=== PATIENT | male | born 1980 | race Two or more races ===

== ENCOUNTER 2017-06-05 11:58 | Emergency (ER) | payer MEDICAID, OTHER, SELFPAY ==
[~2017-06-05] VITALS: Ht 180.3 cm; Wt 139.2 kg
[2017-06-05 12:00] VITALS: BP 147/90
[2017-06-05] MEDS ORDERED: HYDROcodone/APAP 5/325 TABLET ONE (12:29)
[2017-06-05] MEDS ORDERED: HYDROcodone/APAP 5/325 TABLET PO ONE (12:30)
== END 2017-06-05 14:14 | disposition home or self-care (01) ==
LOC: ED 12:30
DX: S62.314A Displaced fracture of base of fourth metacarpal bone, right hand, initial encounter for closed fracture (principal); G89.11 Acute pain due to trauma; W01.0XXA Fall on same level from slipping, tripping and stumbling without subsequent striking against object, initial encounter; Y93.89 Activity, other specified; Y92.410 Unspecified street and highway as the place of occurrence of the external cause; Y99.8 Other external cause status
CPT/HCPCS: 29125; 99284

== ENCOUNTER 2017-12-16 01:50 | Emergency (ER) | payer MEDICAID ==
[~2017-12-16] VITALS: Ht 177.8 cm; Wt 145.0 kg
[2017-12-16] MEDS ORDERED: LISI-170 PO (01:54)
[2017-12-16] MEDS ORDERED: DIPHENHYDRAMINE 50 MG/ML, 1ML IVPush ONE (02:30)
[2017-12-16] MEDS ORDERED: PROCHLORPERAZINE 5 MG/ML, 2ML IVPush ONE (02:30)
[2017-12-16] MEDS ORDERED: DIPHENHYDRAMINE 50 MG/ML, 1ML ONE (02:31)
[2017-12-16] MEDS ORDERED: PROCHLORPERAZINE 5 MG/ML, 2ML ONE (02:31)
[2017-12-16 03:37] VITALS: BP 169/90
== END 2017-12-16 03:45 | disposition home or self-care (01) ==
LOC: ED 03:39
DX: G44.219 Episodic tension-type headache, not intractable (principal); I10 Essential (primary) hypertension
CPT/HCPCS: 70450; 96374; 96375; 99284; J0780; J1200

== ENCOUNTER 2018-09-26 12:38 | Day surgery (SDC) | payer OTHER ==
[~2018-09-26] VITALS: Ht 177.8 cm; Wt 141.2 kg
[~2018-09-26 12:38] MED LIST: LISI-170 PO
[2018-09-26] MEDS ORDERED: LACTATED RINGERS 1,000 ML IV SCH (12:54)
[2018-09-26] MEDS ORDERED: CYCL5TAB PO (13:16)
[2018-09-26 13:25] VITALS: BP 118/81
[2018-09-26] MEDS ORDERED: FENTANYL PF 100 MCG/2ML ONE (13:56)
[2018-09-26] MEDS ORDERED: MIDAZOLAM 1 MG/ML, 2ML ONE (13:56)
[2018-09-26] MEDS ORDERED: LIDOCAINE 1%-EPI 1:100K, 20ML ONE (14:18)
[2018-09-26] MEDS ORDERED: ROPIvacaine/PF 0.5%, 30 ML ONE (14:18)
[2018-09-26] MEDS ORDERED: FENTANYL PF 250 MCG/5ML ONE (14:42)
[2018-09-26] MEDS ORDERED: DIAZEPAM 5 MG/ML, 2ML IVPush PRN (15:00)
[2018-09-26] MEDS ORDERED: PROMETHAZINE 25 MG/ML, 1ML IV PRN (15:00)
[2018-09-26] MEDS ORDERED: LABETALOL 5MG/ML, 20ML IV PRN (15:00)
[2018-09-26] MEDS ORDERED: hydrALAzine 20 MG/ML, 1ML IV PRN (15:00)
[2018-09-26] MEDS ORDERED: ACETAMINOPHEN 325 MG TABLET PO PRN (15:00)
[2018-09-26] MEDS ORDERED: HYDROmorphone 2 MG/ML, 1ML IVPush PRN (15:00)
[2018-09-26] MEDS ORDERED: FENTANYL PF 100 MCG/2ML IV PRN (15:00)
[2018-09-26] MEDS ORDERED: MEPERIDINE/PF 25MG/0.5ML IVPush PRN (15:00)
[2018-09-26] MEDS ORDERED: ALBUTEROL SULFATE 2.5 MG/3 ML NPPB PRN (15:00)
[2018-09-26] MEDS ORDERED: MEPERIDINE/PF 100 MG/ML ONE (15:57)
[2018-09-26] MEDS ORDERED: NEOSTIGMINE 1 MG/ML, 10ML ONE (15:58)
[2018-09-26] MEDS ORDERED: PROPOFOL 10 MG/ML, 20ML ONE (15:58)
[2018-09-26] MEDS ORDERED: ONDANSETRON 2MG/ML, 2ML ONE (15:58)
[2018-09-26] MEDS ORDERED: CEFAZOLIN 1,000 MG ONE (15:58)
[2018-09-26] MEDS ORDERED: ROCURONIUM 10MG/ML,5ML ONE (15:58)
[2018-09-26] MEDS ORDERED: GLYCOPYRROLATE 0.2MG/1ML, 5ML ONE (15:58)
[2018-09-26] MEDS ORDERED: DEXAMETHASONE 4 MG/ML, 1ML ONE (15:58)
[2018-09-26] MEDS ORDERED: SUCCINYLCHOLINE 20 MG/ML, 10ML ONE (15:58)
[2018-09-26] MEDS ORDERED: OXYcodone 5 MG/5 ML ORAL.SOL UDC ONE (16:34)
[2018-09-26] MEDS: OXYcodone 5 MG/5 ML ORAL.SOL UDC PO PRN ×2 (16:35→17:57)
== END 2018-09-26 18:50 | disposition home or self-care (01) ==
LOC: OUT 12:38
PROVIDERS: ATTEND Orthopaedic Surgery
DX: S83.282A Other tear of lateral meniscus, current injury, left knee, initial encounter (principal); S83.242A Other tear of medial meniscus, current injury, left knee, initial encounter; M66.862 Spontaneous rupture of other tendons, left lower leg; M65.862 Other synovitis and tenosynovitis, left lower leg; G47.33 Obstructive sleep apnea (adult) (pediatric); I10 Essential (primary) hypertension; E66.9 Obesity, unspecified; Z68.41 Body mass index [BMI] 40.0-44.9, adult; Z79.82 Long term (current) use of aspirin; Z88.8 Allergy status to other drugs, medicaments and biological substances; Z91.09 Other allergy status, other than to drugs and biological substances; W10.8XXA Fall (on) (from) other stairs and steps, initial encounter; Y93.89 Activity, other specified; Y92.89 Other specified places as the place of occurrence of the external cause; Y99.8 Other external cause status
CPT/HCPCS: 27385; 29880; 64447; 94660; J0330; J0690; J1100; J2175; J2250; J2405; J2704; J2710; J2795; J3010; J3490; J7120